=== PATIENT | male | born 1960 | race American Indian/Alaskan Native ===

== ENCOUNTER 2017-01-23 16:17 | Emergency (ER) | payer OTHER ==
[~2017-01-23] VITALS: Ht 172.7 cm; Wt 58.1 kg
[2017-01-24] MEDS ORDERED: DILANTIN100 MG PO (16:46)
[2017-01-24] MEDS ORDERED: PHENYTOIN SODI100 MG PO (16:54)
== END 2017-01-23 18:23 | disposition home or self-care (01) ==
LOC: ED 16:17
DX: F10.129 Alcohol abuse with intoxication, unspecified (principal); R56.9 Unspecified convulsions; Z87.891 Personal history of nicotine dependence; Z85.841 Personal history of malignant neoplasm of brain
CPT/HCPCS: 80048; 81001; 85025; 96360; 99283; G0480; J7030

== ENCOUNTER 2017-01-24 16:18 | Emergency (ER) | payer OTHER ==
[~2017-01-24] VITALS: Ht 172.7 cm; Wt 58.1 kg
[2017-01-24] MEDS ORDERED: DILANTIN100 MG PO (16:46)
[2017-01-24] MEDS ORDERED: PHENYTOIN SODI100 MG PO (16:54)
== END 2017-01-24 17:20 | disposition home or self-care (01) ==
LOC: ED 16:18
DX: Z76.0 Encounter for issue of repeat prescription (principal); Z87.891 Personal history of nicotine dependence; Z79.899 Other long term (current) drug therapy
CPT/HCPCS: 99281

== ENCOUNTER 2017-01-25 18:01 | Emergency (ER) | payer OTHER ==
[~2017-01-25] VITALS: Ht 172.7 cm; Wt 58.1 kg
[~2017-01-25 18:01] MED LIST: DILANTIN100 MG PO; PHENYTOIN SODI100 MG PO
== END 2017-01-25 18:36 | disposition home or self-care (01) ==
LOC: ED 18:01
DX: S00.531A Contusion of lip, initial encounter (principal); S00.81XA Abrasion of other part of head, initial encounter; Z87.891 Personal history of nicotine dependence; Z79.899 Other long term (current) drug therapy; W22.8XXA Striking against or struck by other objects, initial encounter
CPT/HCPCS: 99282

== ENCOUNTER → 2017-03-29 | Emergency (ER) | payer OTHER ==
[~2017-03-29] VITALS: Ht 172.7 cm; Wt 58.1 kg
[~2017-03-29] MED LIST changes: +ZOFRAN ODT4 MG PO
== END ==
LOC: ED 19:31
DX: F10.229 Alcohol dependence with intoxication, unspecified (principal); G40.909 Epilepsy, unspecified, not intractable, without status epilepticus; Z87.891 Personal history of nicotine dependence; Y90.8 Blood alcohol level of 240 mg/100 ml or more
CPT/HCPCS: 80053; 80185; 85025; 96365; 96366; 99283; G0480; J3411; J7030

== ENCOUNTER 2017-04-09 09:16 | Emergency (ER) | payer OTHER ==
[~2017-04-09] VITALS: Ht 172.7 cm; Wt 58.1 kg
[~2017-04-09 09:16] MED LIST changes: -ZOFRAN ODT4 MG PO
[2017-04-09] MEDS ORDERED: ZOFRAN ODT4 MG PO (11:09)
== END 2017-04-09 13:24 | disposition home or self-care (01) ==
LOC: ED 09:16
DX: F10.20 Alcohol dependence, uncomplicated (principal); Y90.8 Blood alcohol level of 240 mg/100 ml or more; G40.909 Epilepsy, unspecified, not intractable, without status epilepticus
CPT/HCPCS: 80048; 85025; 96374; 99283; G0480; J2405; J7030

== ENCOUNTER 2017-04-22 18:42 | Emergency (ER) | payer OTHER ==
[~2017-04-22] VITALS: Ht 172.7 cm; Wt 58.1 kg
[~2017-04-22 18:42] MED LIST changes: +ZOFRAN ODT4 MG PO
--- NOTE | 2017-04-24 14:25 | EKG ---
[facility] [address] [facility] [place] [address] Signed Poor data quality, interpretation may be adversely affected Normal sinus rhythm Junctional ST depression, probably normal Borderline ECG No previous ECGs available Confirmed by KARLY GONZALEZ MD ([id number]) on 04/24/2017 2:24:52 PM Electronically Signed By: KARLY GONZALEZ MD 04/24/17 1425 PATIENT NAME: IZZYLAMAR KIARA Electrocardiogram DATE OF : 64 PHYSICIAN: KARLY GONZALEZ MD REPORT #: [id number] REPORT IS CONFIDENTIAL AND NOT TO BE RELEASED WITHOUT AUTHORIZATION
== END 2017-04-22 21:45 | disposition home or self-care (01) ==
LOC: ED 18:42
DX: T68.XXXA Hypothermia, initial encounter (principal); F10.129 Alcohol abuse with intoxication, unspecified; G40.909 Epilepsy, unspecified, not intractable, without status epilepticus; Z59.0 Homelessness; Z79.899 Other long term (current) drug therapy; Y90.8 Blood alcohol level of 240 mg/100 ml or more
CPT/HCPCS: 80053; 84484; 85025; 93005; 93010; 99283; G0480

== ENCOUNTER 2017-06-23 15:59 | Emergency (ER) | payer OTHER ==
[~2017-06-23] VITALS: Ht 162.6 cm; Wt 58.1 kg
--- NOTE | 2017-06-25 14:05 | EKG ---
[facility] [address] [facility] [place], [place] [address] Signed Sinus tachycardia Otherwise normal ECG When compared with ECG of 22-APR-2017 19:05, No significant change was found Confirmed by KARLY GONZALEZ MD ([id number]) on 06/25/2017 2:04:53 PM Electronically Signed By: KARLY GONZALEZ MD 06/25/17 1405 PATIENT NAME: LAMAR MAGANA Electrocardiogram DATE OF : 64 PHYSICIAN: KARLY GONZALEZ MD REPORT #: [id number] REPORT IS CONFIDENTIAL AND NOT TO BE RELEASED WITHOUT AUTHORIZATION
[2017-07-16] MEDS ORDERED: AUGMENTIN 500-1 EACH PO (12:31)
== END 2017-06-23 18:29 | disposition home or self-care (01) ==
LOC: ED 15:59
DX: R07.89 Other chest pain (principal); G40.909 Epilepsy, unspecified, not intractable, without status epilepticus; Z87.891 Personal history of nicotine dependence; Z79.899 Other long term (current) drug therapy
CPT/HCPCS: 71045; 80053; 84484; 85025; 93005; 93010; 99284

== ENCOUNTER 2017-07-06 09:15 | Emergency (ER) | payer OTHER ==
[~2017-07-06] VITALS: Ht 162.6 cm; Wt 58.1 kg
--- NOTE | 2017-07-07 07:20 | EKG ---
[facility] [address] [facility] [place], [place] [address] Signed Sinus tachycardia Otherwise normal ECG When compared with ECG of 23-JUN-2017 16:02, No significant change was found Confirmed by ARNOLD WEST MD ([id number]) on 07/07/2017 7:19:58 AM Electronically Signed By: ARNOLD WEST MD 07/07/17 0720 PATIENT NAME: LAMAR MAGANA Electrocardiogram DATE OF : 64 PHYSICIAN: ARNOLD WEST MD REPORT #: [id number] REPORT IS CONFIDENTIAL AND NOT TO BE RELEASED WITHOUT AUTHORIZATION
[2017-07-16] MEDS ORDERED: AUGMENTIN 500-1 EACH PO (12:31)
== END 2017-07-06 09:56 | disposition home or self-care (01) ==
LOC: ED 09:15
DX: F10.20 Alcohol dependence, uncomplicated (principal); Z87.891 Personal history of nicotine dependence; Z79.899 Other long term (current) drug therapy
CPT/HCPCS: 93005; 93010; 99283

== ENCOUNTER 2017-07-07 18:19 | Emergency (ER) | payer OTHER ==
[~2017-07-07] VITALS: Ht 162.6 cm; Wt 58.1 kg
--- NOTE | 2017-07-08 07:38 | EKG ---
[facility] [address] [facility] [place], [place] [address] Signed Sinus tachycardia Otherwise normal ECG When compared with ECG of 06-JUL-2017 09:25, No significant change was found Confirmed by ARNOLD WEST MD ([id number]) on 07/08/2017 7:38:13 AM Electronically Signed By: ARNOLD WEST MD 07/08/17 0738 PATIENT NAME: LAMAR MAGANA Electrocardiogram DATE OF : 64 PHYSICIAN: ARNOLD WEST MD REPORT #: [id number] REPORT IS CONFIDENTIAL AND NOT TO BE RELEASED WITHOUT AUTHORIZATION
[2017-07-16] MEDS ORDERED: AUGMENTIN 500-1 EACH PO (12:31)
== END 2017-07-07 21:21 | disposition home or self-care (01) ==
LOC: ED 18:19
DX: F10.129 Alcohol abuse with intoxication, unspecified (principal); R07.9 Chest pain, unspecified; Y90.8 Blood alcohol level of 240 mg/100 ml or more; Z87.891 Personal history of nicotine dependence; Z79.899 Other long term (current) drug therapy
CPT/HCPCS: 71046; 80053; 83690; 85025; 93005; 93010; 96374; 96375; 99283; G0480; J2060; J3411; J7030

== ENCOUNTER 2017-07-10 15:25 | Emergency (ER) | payer OTHER ==
[~2017-07-10] VITALS: Ht 162.6 cm; Wt 58.1 kg
[2017-07-10] MEDS ORDERED: ZOFRAN ODT4 MG PO ×2 (19:03→19:05)
[2017-07-10] MEDS ORDERED: CHLORDIAZEPOXID25 MG PO ×2 (19:03→19:05)
[2017-07-10] MEDS ORDERED: CLONIDINE HCL0.1 MG PO (19:05)
[2017-07-16] MEDS ORDERED: AUGMENTIN 500-1 EACH PO (12:31)
== END 2017-07-10 19:42 | disposition home or self-care (01) ==
LOC: ED 15:25
DX: F10.239 Alcohol dependence with withdrawal, unspecified (principal); E86.0 Dehydration; F17.200 Nicotine dependence, unspecified, uncomplicated; Z79.899 Other long term (current) drug therapy
CPT/HCPCS: 80053; 81001; 83605; 83690; 85025; 96374; 96375; 99284; G0480; J2060; J2405; J7030; J7042

== ENCOUNTER 2017-07-15 19:33 | Inpatient (IN) | payer OTHER ==
[~2017-07-15] VITALS: Ht 162.6 cm; Wt 63.7 kg
[~2017-07-15 19:33] MED LIST changes: +CHLORDIAZEPOXID25 MG PO; +CLONIDINE HCL0.1 MG PO
--- NOTE | 2017-07-15 21:04 | NUR ---
PT APPARENTLY, AT TIME OF THIS RECORD, IS NOT INJURED SERIOUSLY AND WILL BE DC'D TO GO HOME. HE HAS NO FAMILY TO CONTACT EXCEPT HIS MOTHER IN [place]. PT HAS NO PHONE ON HIM AND BELIEVES IT MAY BE IN HIS APARTMENT. PERSON TO NOTIFY IS LISTED NOONE. SUPERVISOR REACTOR FUELING HAS MADE ARRANGEMENTS FOR HIM TO GET A CARE RIDE BACK TO HIS APARTMENT ONCE DC IS COMPLETE.
--- NOTE | 2017-07-16 02:16 | NUR ---
07/16/17 0216 DRUMMOND,BIANCA Yimi 0020: PATIENT ARRIVED TO CCU ROOM 128 FOR RECOVERY PERIOD. PATIENT WITH ET TUBE IN PLACE. RT VENTILATING PATIENT WITH AMBU BAG. ART LINE IN PLACE, LEFT WRIST. FARROWING WORKER AT BEDSIDE. 2 CCU RNs AT BEDSIDE ALONG WITH PHOTO SPECIALIST. 0030: PATIENT MOVED FROM STRETCHER TO BED. CCU RNs ASSISTING TO HOOK MONITORS UP TO PATIENT. RESTRAINTS PLACED ON PATIENT BY CCU RN. LEFT WRIST ART LINE ZERO'D. PATIENT PLACED ON VENT BY RT. PATIENT AROUSING/MOVING INTERMITTENTLY. FARROWING WORKER AT BEDSIDE TO ADMINISTER PROPOFOL. RAC IV IS A FIELD START IV. CURRENTLY SALINE LOCKED. SITE WNL. LEFT HAND IV IS ALSO A FIELD START. ALSO, CURRENTLY SALINE LOCKED. LR RUNNING IN RIGHT FOREARM IV SITE. RFA IV SITE WNL. LR RUNNING IN LEFT FOREARM IV. LFA IV SITE WNL. 0040: PROPOFOL DRIP SET UP BY CCU RN. RT REMAINS AT BEDSIDE. 0050: SHEA EMPTIED. RT REMAINS AT BEDSIDE. CCU RNs ALSO ASSISTING WITH CARE. 0115: REPORT GIVEN TO CCU RN. CARE RESUMED BY CCU RN.
--- NOTE | 2017-07-16 03:18 | NUR ---
PT ARRIVED TO ROOM 128 AT 0015 FOR PACU. CARE TAKEN OVER AT 0115. PT PLACED ON VENTILATOR PER RT. PT WITH DRIED BLOOD IN NOSE AND MOUTH. ET TUBE SECURED. ART LINE ZEROED AND CONNECTED. SHEA TEMP PROBE IN PLACED DRAINING YELLOW URINE. STARTED PROPOFOL GTT AT 0040, PREVIOUSLY BEING SEDATED BY NURSE ANESTHESIST WITH PROPOFOL BOLUS. PROPOFOL GTT STARTED AT 10MCG/KG/MIN. TITRATED TO 20MCG/KG/MIN AT 0045, TO 30MCG/KG/MIN AT 0100, AND UP TO 40MCG/KG/MIN AT 0130. PT UP TO 50MCG/KG/MIN AT 0155 FOR RASS +2. EACH TIME TITRATED PT AGITATED, PULLING UP ARMS, GRIMACING, BITING ET TUBE. CURRENTLY PROPOFOL AT 30MCG/KG/MIN. 1MG ATIVAN GIVEN FOR BREAKTHROUGH AGITATION AT 0255, AND 1MG DILAUDID GIVEN IV FOR PAIN. PT BEGAN VOMITING AT 0130. ADMINISTERED 8MG ZOFRAN IV AND PLACED OG TUBE USING UROJET. DARK RED/BLACK COLORED LIQUID IN TUBE, VERIFIED PLACEDMENT WITH OSCULTATION AND XRAY. PLACED TO LIWS. COLOR NOW MORE CLEAR BROWN. AT 0217 PT BP DECREASED TO 72/48, PROPOFOL DECREASED TO 40MCG/KG/MIN.
--- NOTE | 2017-07-16 05:30 | NUR ---
PT OPENS EYES, CALM. EXPLAINED TO PT THAT HE IS IN THE HOSPITAL. REPOSITIONED TO FLOAT HIPS ON PILLOWS. SCD'S ON. PT CALM. EYES BACK TO BEING CLOSED. RT IN TO ADJUST VENT AND PROVIDE ORAL CARE.
--- NOTE | 2017-07-16 06:15 | NUR ---
PT GIVEN 1MG ATIVAN IV AFTER ORAL CARE. SITTING UP, TRYING TO REACH ET TUBE. RESTING QUIETLY NOW. PLATLETS STARTED AT 0423, NOW COMPLETE AT 0555.
--- NOTE | 2017-07-16 06:52 | NUR ---
PT RESTING COMFORTABLY, EYES CLOSED. PROPOFOL AT 20MCG/KG/MIN. VENT SETTINGS TV 440, PEEP5, FIO2 30%, RATE16, PIP CURRENTLY 17
--- NOTE | 2017-07-16 07:30 | NUR ---
BEDSIDE REPORT RECIEVED.
--- NOTE | 2017-07-16 07:35 | NUR ---
AWAKE, HEAD OFF PILLOW, ATTEMPTING TO EXTABATE SELF. WRIST RESTRAINTS REINFORCED. PROPOFOL INCREASED TO 30MCG/KG/MIN. IVF INFUSING AT 100 ML/HR. ART LINE ZEROED. WAVE FORM GOOD. SHEA CATH PATENT WITH CLEAR YELLOW URINE NOTED. HAS GOOD SENSATION IN FEET. SUCTIONED FOR SCANT AMOUNT OF PINK SPUTUM.
--- NOTE | 2017-07-16 08:57 | NUR ---
RECIEVED NEW ORDERS FOR A PT EVALUATION AND TREATMENT. WENT TO CHECK ON PATIENT AND HE IS NOT APPROPRIATE AT THIS TIME FOR A FORMAL PT EVALUATION. PATIENT IS CURRENTLY INTUBATED AND NON RESPONSIVE. SPOKE WITH NSG ABOUT PATIENT'S RECENT CT SCAN AND ADVISED TO USE CAUTION WITH ROLLING AND REPOSITIONING. PATIENT MAY BENEFIT FROM AN ORTHO EVALUATION SECONDARY TO RECENT BURST FRACTURE IN THE L3 VERTEBRAE WELL SEVERE CENTRAL CANAL STENOSIS AT C6-C7 SECONDARY TO CHRONIC DISC BULGE AND MULTIPLE CHRONIC FRACTURES IN THE SPINE. WILL CHECK ON PATIENT TOMORROW FOR POSSIBLE EVALUATION IF APPROPRIATE.
--- NOTE | 2017-07-16 09:35 | NUR ---
DILAUDID 1 MG IV GIVEN FOR OVERALL COMFORT.
--- NOTE | 2017-07-16 09:45 | NUR ---
DR. GONZALEZ HERE TO SEE PATIENT. PLAN TO DC PROPOFOL, DO CPAP THEN EXTABATE.
--- NOTE | 2017-07-16 09:50 | NUR ---
PROPOFOL TO OFF. DR. TORREZ AWARE OF PLAN. NO FUTHER ORDERS.
--- NOTE | 2017-07-16 10:01 | NUR ---
TO CPAP, RT WORKING WITH PATIENT.
--- NOTE | 2017-07-16 10:47 | CONS ---
[facility] [address], [place] [address] Signed DATE OF CONSULTATION: 07/15/2017 REFERRING PHYSICIAN: Dr. Sidney Manzano CHIEF COMPLAINT: Trauma. HISTORY OF PRESENT ILLNESS: Lamar a 57-year-old gentleman, well known to our local emergency room. Unfortunately, he suffers with alcohol abuse. He is also known to have a tumor in his left frontal lobe of his brain. He has a history of seizures and he knows he has a very bad back. He often complains of chest and abdominal pain when he comes to emergency room. Earlier today, he and his girlfriend were trying to sneak up the fire escape of a second-story apartment and he said he thought he fell as far as 20 feet down to the ground. When I talked to him, he thought he landed on his face and he certainly has some blood around his mouth, however, he said, he did not lose consciousness and apparently he was able to walk around the front of the house and actually into the house in the front and have someone call so that he can come to the emergency room. In emergency room, he has been very cooperative. He vomited up some blood, but otherwise his distal neuro exams are intact, and although he is definitely intoxicated, he certainly answers appropriately and seems to be very cooperative. In the meantime, he has been off to the CT on back and I will review that down below. He did have a Moore catheter placed along with his peripheral IVs. He has had return of clear yellow urine and a little bit somnolent from the alcohol, but responds easily to voice and we have actually given a couple of liters of fluid as well because his blood pressure had run down a little. 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 PAST SURGICAL HISTORY: None. SOCIAL HISTORY: He likes to smoke and he drinks up to half a gallon of whiskey a day. Apparently, he has used methamphetamines, cocaine, and heroin in the past. He has a girlfriend. He goes to the [facility] mainly with Chen oRsa, but also Dr. Giselle Campbell. He said he was denied disability and he will now work for probably a year. FAMILY HISTORY: He said mom vomited and aspirated and when he was only age 4. Dad of alcohol abuse. Electronically Signed By: NEMO TORREZ MD 07/16/17 1047 PATIENT NAME: LAMAR MAGANA CONSULTATION DATE OF : 64 REPORT #: [id number] PHYSICIAN: NEMO TORREZ MD PCP: GISELLE CAMPBELL MD REPORT IS CONFIDENTIAL AND NOT TO BE RELEASED WITHOUT AUTHORIZATION [facility] [address] [place] [id number] Signed REVIEW OF SYSTEMS: He had 10 systems reviewed and he is very cooperative and he seemed to be straightforward in his answers. ALLERGIES: None. MEDICATIONS: 1. Phenytoin. 2. Clonidine. 3. Chlordiazepoxide. PHYSICAL EXAMINATION: VITAL SIGNS: Blood pressure 120/82, heart rate was 102, respiratory rate 22, and temperature is 97.3. He is 5 feet 4 inches, around 58 kg. GENERAL: Lamar is a 57-year-old gentleman, who came in initially with his C-collar on his board. He had mildly slurred speech, but he is cooperative. In the meantime, we cleared his neck radiographically and clinically and the C-collar is off and he is off his backboard. LUNGS: Generally clear to auscultation bilaterally. HEART: Little tachycardic. ABDOMEN: Generally soft and flat. He tends to complain about pain all over the abdomen. His distal neurovascular exams are intact. LABORATORY DATA: His white blood count is 5.2, hemoglobin 12, and platelets 141. BUN 6, creatinine 0.8, AST 41, ALT 34, alkaline phosphatase 138, total bilirubin 0.6, and albumin is 4.2. His lipase is 12. His urinalysis was negative. Creatine kinase is 198. His alcohol is 314. RADIOGRAPHIC STUDIES: A chest x-ray was unremarkable. The CT scan of the brain showed the left frontal lobe tumor, it is chronic. He has thickening to the maxillary sinuses consistent with sinusitis. He has a fairly large osteophyte at C5-C6 that pushes on the canal a bit, puts him at high risk if it would ever fracture and push on his spinal canal. CT scan of chest, abdomen, and pelvis shows the old rib fractures, some chronic compression fractures in thoracic spine as well as at L1, but he does have a L3 burst fracture with no retropulsion into the canal. ASSESSMENT/PLAN: Lamar is a 57-year-old gentleman, who presents as above mainly with an L3 burst fracture. Our emergency room physician did check for Orthopedic surgery, who recommended we call [facility] and we are in the process doing that. He probably Electronically Signed By: NEMO TORREZ MD 07/16/17 1047 PATIENT NAME: LAMAR MAGANA CONSULTATION DATE OF : 64 REPORT #: [id number] PHYSICIAN: NEMO TORREZ MD PCP: GISELLE CAMPBELL MD REPORT IS CONFIDENTIAL AND NOT TO BE RELEASED WITHOUT AUTHORIZATION [facility] [address] [place], [place] [address] Signed has some maxillary sinusitis and, of course, he did take a contusion to his mouth, but his teeth were intact, although there is some blood and I think in time, that will be fine. Of course, he has the alcohol abuse. At this point, we will await our followup from [facility]. He may be admitted and fitted for a brace. I have explained this to Lamar. He has expressed understanding and agrees to above plan. Nemo Torrez MD ALB/MODL /[id number] cc: MD Nemo Yi MD Copies: GISELLE CAMPBELL MD, ANDREW L MD ~ Electronically Signed By: NEMO TORREZ MD 07/16/17 1047 PATIENT NAME: LAMAR MAGANA CONSULTATION DATE OF : 64 REPORT #: [id number] PHYSICIAN: NEMO TORREZ MD PCP: GISELLE CAMPBELL MD REPORT IS CONFIDENTIAL AND NOT TO BE RELEASED WITHOUT AUTHORIZATION
--- NOTE | 2017-07-16 10:47 | OR ---
[facility] [address] [place], [place] [address] Signed DATE OF OPERATION: 07/15/2017 SURGEON: Nemo Torrez MD PREOPERATIVE DIAGNOSES: 1. Hematemesis. 2. Alcohol abuse. 3. Fall from approximately 20 feet with L3 burst fracture. POSTOPERATIVE DIAGNOSIS: Chronic gastritis. PROCEDURE PERFORMED: EGD without biopsy. FINDINGS: Fresh blood in stomach, but no source of bleeding found other than the laceration inside of lower lip. INDICATIONS: Lamar is a 57-year-old gentleman, who unfortunately drinks between one and two quarts of hard liquor a day. He was with his girlfriend earlier today and he was trying to get up and down a fire escape ladder and fell about 20 feet to the ground below. He thinks he landed directly on his face, however, he denies loss of consciousness. He ended up walking around to the front of the apartment complex where he was able to ring the door mcelroy and one of the other tenants was able to call the ambulance to bring him to our local emergency room. Here in the emergency room, I spent about 2 hours with him with the ER physician. I was here just to see arrive. Initially, his systolic blood pressures are in the 120s and his heart rates always been around 100 to 105. Although intoxicated, he certainly was cooperative and very willing to talk with us. His initial chest x-ray was fine and we see that his initial hemoglobin was 12. We sent him over to the CT scanner where he had some chronic issues including a tumor in his left frontal lobe of his brain. He has some chronic fractures in his spine. He has a large osteophyte at C5-C6 and also has what looks like sinusitis currently, but he had an L3 burst fracture without retropulsion. He had been stable during this whole time, so the ER physician called [facility]'s neurosurgeon, who asked that we do some plain films of the L3 fracture to see if it was compressed more than 50% to make sure there was no retropulsion and if there were not, then this could be treated symptomatically. In the meantime, his blood pressure dropped to about 80 and he felt nauseated and eventually vomited up to about a liter of blood per the ER nurse. He Electronically Signed By: NEMO TORREZ MD 07/16/17 1047 PATIENT NAME: LAMAR MAGANA OPERATIVE REPORT DATE OF : 64 REPORT #: [id number] PHYSICIAN: NEMO TORREZ MD PCP: GISELLE SALMERON MD REPORT IS CONFIDENTIAL AND NOT TO BE RELEASED WITHOUT AUTHORIZATION [facility] [address] [place], [place] [address] Signed received some additional fluids and some Zofran, and when they took him over to get his plain films, he simply was not able to stand and his blood pressure went down to as low as to 60s. He was brought back over to the [facility], but it had been ordered, and at that point, I had actually gone off home and I was called and I came straight back. We called our crew in. Lamar was able to talk to me. I explained to him we needed to check his stomach for any bleeding source and if there was a bleeding ulcer or other issue that might need surgery. He also agreed to surgery along with the upper endoscopy. He told me that anything that I need to do to keep him alive was fine. DESCRIPTION OF PROCEDURE: Lamar was taken into the endoscopy suite and placed under general endotracheal tube anesthesia. The adult gastroscope was then introduced and we could see where he cut his inside of his lower lip, but was not actively bleeding now. His teeth were all intact. There was nothing loose. He had a little edema in the posterior oropharynx, but not horrible. The adult gastroscope was then passed down the esophagus into the stomach and down out into duodenum. The duodenum and pyloric channel were carefully evaluated. No evidence of any ulceration or bleeding. He had a little bit of food at the bottom of stomach with some clotted blood, so I took some time to irrigate that and push it around and found that there was no ulcers in the antrum nor on the incisura body of the stomach. He has a classic cobblestoning associated with the alcohol abuse in his gastritis, but no active bleeding from the gastritis. The scope had been retroflexed. I could not really see an obvious hiatal hernia, but he had quite a bit of fluid and some blood clots up in the fundus, so it took me a few minutes to irrigate and suction that out completely. We passed the scope in and out of the GE junction several times. He does have a little bit of destruction to the Z-line, but I could not find any evidence of a Tomasa-Urbina tear or other source of bleeding at the GE junction. Eventually, I got all the blood sucked out of the fundus and it was fine as well. The distal esophagus, middle and upper esophagus were also fine. As we worked, there was no additional blood accumulating. We felt very strongly we could not find any active bleeding throughout the esophagus, stomach, or duodenum and there was probably just blood that he had swallowed. The scope was then withdrawn and we left Lamar intubated. I had spoke to my hospitalist because we suspect Lamar will be withdrawing from alcohol in due time, and then I also called Dr. Hernando Snyder at [facility]. We talked about the various issues for Lamar and at this point, we felt it would be appropriate to keep him here and intubated and watch him with serial exams and blood draws. In the meantime, we placed an arterial line per our nurse platform beater and we left him intubated. We took him over to our ICU in generally stable, but critical condition. He did receive 2 units of blood during the endoscopy and we have his systolic blood pressure back up into the 90s. Again, his heart rate has stayed around 100. Electronically Signed By: NEMO TORREZ MD 07/16/17 1047 PATIENT NAME: LAMAR MAGANA OPERATIVE REPORT DATE OF : 64 REPORT #: [id number] PHYSICIAN: NEMO TORREZ MD PCP: GISELLE SALMERON MD REPORT IS CONFIDENTIAL AND NOT TO BE RELEASED WITHOUT AUTHORIZATION [address] [address] Signed Nemo Torrez MD ALB/MODL /[id number] cc: MD Giselle Pearson MD Copies: SAMMY SHEN ANDREW L MD QUAEMPTS, REX MD ~ Electronically Signed By: NEMO TORREZ MD 07/16/17 1047 PATIENT NAME: LAMAR MAGANA OPERATIVE REPORT DATE OF : 64 REPORT #: [id number] PHYSICIAN: NEMO TORREZ MD PCP: GISELLE SALMERON MD REPORT IS CONFIDENTIAL AND NOT TO BE RELEASED WITHOUT AUTHORIZATION
--- NOTE | 2017-07-16 11:10 | NUR ---
HAS BEEN ON CPAP FOR 70 MIN. PATIENT IS AWAKE AND COOPERATIVE. IS WRITING NOTES. DR. TORREZ HERE AND TALKING WITH PATIENT. DR. GONZALEZ UPDATED ON PATIENT. DR. GONZALEZ WILL BE HERE TO SEE PATIENT.
--- NOTE | 2017-07-16 11:15 | NUR ---
ORDERS RECIEVED TO EXTABATE.
--- NOTE | 2017-07-16 11:19 | NUR ---
EXTABATED TO O2 AT 2 L PER NC. IS COOPERATIVE.
--- NOTE | 2017-07-16 11:25 | NUR ---
MG LEVEL DRAWN VIA ART LINE. ART LINE DC'D, PRESSURE APPLIED X 10 MIN.
--- NOTE | 2017-07-16 11:30 | NUR ---
MONSE PICKETT DC'D PER ORDERS.
--- NOTE | 2017-07-16 11:45 | NUR ---
TOOK SIPS OF WATER W/O PROBLEMS. LIBURIM 50 MG PO GIVEN.
--- NOTE | 2017-07-16 12:30 | NUR ---
TO XRAY VIA W/C ACCOMP BY [employer] AND RN.
--- NOTE | 2017-07-16 12:30 | NUR ---
UPON GETTING OUT OF BED TO GET W/C FOR CT, C/O MID SUBSTERNAL PAIN.
[2017-07-16] MEDS ORDERED: AUGMENTIN 500-1 EACH PO ×2 (12:31)
--- NOTE | 2017-07-16 12:50 | NUR ---
RETURNED TO CCU. TOLERATED XRAY WELL. TO CHAIR FOR CLEAR LIQUIDS. IS SHAKEY.
--- NOTE | 2017-07-16 13:00 | NUR ---
DISCHARGE ORDERS RECIEVED.
--- NOTE | 2017-07-16 13:27 | NUR ---
PT REMAINS UP IN THE CHAIR AND WATCHING TV. WORKING ON HIS CLEAR LIQUID TRAY FOR LUNCH.
--- NOTE | 2017-07-16 14:30 | NUR ---
ALL 4 IV SITES DC'D. CATH INTACT. MONITOR DC'D.
--- NOTE | 2017-07-16 14:50 | NUR ---
DR. TORREZ AWARE OF FX STERNUM NO FUTHER ORDERS RECIEVED. REMAINS OKAY FOR DISCHARGE.
--- NOTE | 2017-07-16 15:25 | NUR ---
LIBRIUM 50 MG PO GIVEN PER ORDERS.
--- NOTE | 2017-07-16 15:40 | NUR ---
discharged via w/c ACCOMP BY RN. WILL TAKE TAXI RIDE TO [facility] TO GET MEDS THEN TAXI TO HOME.
[2017-07-18] MEDS ORDERED: ULTRAM50 MG PO ×2 (16:47)
== END 2017-07-16 15:40 | disposition home or self-care (01) | DRG 208 ==
LOC: ED 19:33 → DSVR 19:34 → CCU 19:35
PROVIDERS: ADMIT Colon & Rectal Surgery
PROC: 0DB68ZX Excision of Stomach, Via Natural or Artificial Opening Endoscopic, Diagnostic (ICD-10-PCS; 2017-07-15)
PROC: HZ2ZZZZ Detoxification Services for Substance Abuse Treatment (ICD-10-PCS; principal; 2017-07-15 22:47)
PROC: 0BH17EZ Insertion of Endotracheal Airway into Trachea, Via Natural or Artificial Opening (ICD-10-PCS; principal; 2017-07-15 22:47)
PROC: 5A1935Z Respiratory Ventilation, Less than 24 Consecutive Hours (ICD-10-PCS; principal; 2017-07-15 22:47)
DX: J96.01 Acute respiratory failure with hypoxia (principal); S32.031A Stable burst fracture of third lumbar vertebra, initial encounter for closed fracture; F10.239 Alcohol dependence with withdrawal, unspecified; D62 Acute posthemorrhagic anemia; K29.50 Unspecified chronic gastritis without bleeding; S01.511A Laceration without foreign body of lip, initial encounter; D32.0 Benign neoplasm of cerebral meninges; W17.89XA Other fall from one level to another, initial encounter; D69.6 Thrombocytopenia, unspecified; E83.42 Hypomagnesemia; F17.210 Nicotine dependence, cigarettes, uncomplicated; J01.00 Acute maxillary sinusitis, unspecified
CPT/HCPCS: 31720; 36415; 36430; 36600; 51702; 70450; 70486; 71045; 71260; 72100; 72125; 74177; 80053; 81001; 82150; 82550; 82803; 83605; 83690; 83735; 84100; 85025; 85027; 85610; 85730; 86850; 86900; 86901; 86920; 94002; 94799; 96374; 99285; G0480; J0171; J0295; J0330; J1100; J1170; J2060; J2370; J2405; J2704; J3475; J7040; J7050; J7120; P9016; P9035; Q9967

== ENCOUNTER 2017-07-18 16:27 | Emergency (ER) | payer OTHER ==
[~2017-07-18] VITALS: Ht 162.6 cm; Wt 62.6 kg
[~2017-07-18 16:27] MED LIST changes: +AUGMENTIN 500-1 EACH PO
[2017-07-18] MEDS ORDERED: ULTRAM50 MG PO (16:47)
== END 2017-07-18 17:22 | disposition home or self-care (01) ==
LOC: ED 16:27
DX: S22.20XD Unspecified fracture of sternum, subsequent encounter for fracture with routine healing (principal); G40.909 Epilepsy, unspecified, not intractable, without status epilepticus; Z79.899 Other long term (current) drug therapy; X58.XXXD Exposure to other specified factors, subsequent encounter
CPT/HCPCS: 99283

== ENCOUNTER 2017-07-22 15:22 | Emergency (ER) | payer OTHER ==
[~2017-07-22] VITALS: Ht 162.6 cm; Wt 62.6 kg
[~2017-07-22 15:22] MED LIST changes: +ULTRAM50 MG PO
== END 2017-07-22 20:45 | disposition home or self-care (01) ==
LOC: ED 15:22
DX: F10.129 Alcohol abuse with intoxication, unspecified (principal); F17.200 Nicotine dependence, unspecified, uncomplicated
CPT/HCPCS: 99283

== ENCOUNTER 2017-07-23 15:52 | Emergency (ER) | payer OTHER ==
[~2017-07-23] VITALS: Ht 162.6 cm; Wt 62.8 kg
== END 2017-07-23 20:32 | disposition home or self-care (01) ==
LOC: ED 15:52
DX: F10.229 Alcohol dependence with intoxication, unspecified (principal); F17.200 Nicotine dependence, unspecified, uncomplicated; Z79.899 Other long term (current) drug therapy
CPT/HCPCS: 99282

== ENCOUNTER 2017-08-01 17:02 | Emergency (ER) | payer OTHER ==
[~2017-08-01] VITALS: Ht 162.6 cm; Wt 62.8 kg
== END 2017-08-01 21:25 | disposition home or self-care (01) ==
LOC: ED 17:02
DX: F10.20 Alcohol dependence, uncomplicated (principal); G40.909 Epilepsy, unspecified, not intractable, without status epilepticus; F17.200 Nicotine dependence, unspecified, uncomplicated; Y90.8 Blood alcohol level of 240 mg/100 ml or more; Z79.899 Other long term (current) drug therapy
CPT/HCPCS: 36415; 80053; 81001; 85025; 99283; G0480

== ENCOUNTER 2019-04-18 00:12 | Emergency (ER) | payer OTHER ==
[~2019-04-18] VITALS: Ht 162.6 cm; Wt 58.3 kg
--- OUTSIDE RECORDS SUMMARY | 2019-04-18 00:14 | XMS ---
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 Care History Medical/Surgical 07/24/2017 [facility] - PLEASE CONTACT [facility] IF PATIENT PRESENTS TO THE ED AGAIN. - BEST PERSON TO CONTACT FOR [facility] IS GEORGIE CHAPMAN WHO PROVIDED HER CELL# [phone]. - GEORGIE FROM [facility] IS WILLING TO MEET PATIENT IN THE ED DURING WORKING HOURS MONDAY THROUGH MONDAY. 06/27/2017 [facility] Care Recommendation: This patient has had 5 or more Emergency Department visits in the last 12 months. Patient requires education on the scope and purpose of the ED as an acute care provider not a Primary Care Provider and should not be utilized for chronic conditions. If patient returns to ED please contact [facility] Worker[facility]ee at [phone]. These are guidelines and the provider should exercise clinical judgment when providing care. Substance Use/Overdose 07/11/2017 [facility] PATIENT IS TRYING TO GET INTO [facility]. IF THIS PATIENT COMES TO THE ED - CALL [facility] TO SEE IF THEY HAVE A CURRENT OPENING. [facility] [phone]. [facility]12 MO.) [facility] T[facility] 4 NOTE: Visits indicate total known visits. ED/C VISIT TRACKING (12 MO.) 04/18/2019 00:12 [facility] [place] TYPE: Emergency COMPLAINT: - SHAKING 02/07/2019 21:23 [facility] RafaelPal Nemesio ID (ID) TYPE: Emergency COMPLAINT: - SEIZURE DIAGNOSES: 1. Epilepsy, unsp, not intractable, without status epilepticus 2. Alcohol abuse, uncomplicated 3. Nicotine dependence, cigarettes, uncomplicated 4. Homelessness 5. Other fdc (current) drug therapy 02/07/2019 00:47 [facility] Calvin Herr ID (ID) TYPE: Emergency COMPLAINT: - SEIZURE DIAGNOSES: 1. Alcohol abuse with intoxication, unspecified 2. Epilepsy, unsp, not intractable, without status epilepticus 3. Nicotine dependence, cigarettes, uncomplicated 4. Blood alcohol level of 240 mg/100 ml or more 5. Other terminal operations manager (current) drug therapy 6. Homelessness 04/30/2018 06:49 [facility] Calvin Herr ID (ID) TYPE: Emergency COMPLAINT: - FEELS SEIZURE COMING ON DIAGNOSES: 1. Encntr for obs for oth suspected diseases and cond ruled out 2. Alcohol abuse, uncomplicated 3. Other chronic pain 4. Epilepsy, unsp, not intractable, without status epilepticus 5. Dorsalgia, unspecified 6. Nicotine dependence, cigarettes, uncomplicated 7. Other fdc (current) drug therapy - Alcohol abuse, uncomplicated INPATIENT VISIT TRACKING (12 MO.) No inpatient visits to display in this time frame [email or web address]
== END 2019-04-18 01:38 | disposition home or self-care (01) ==
LOC: ED 00:12
DX: G40.909 Epilepsy, unspecified, not intractable, without status epilepticus (principal); F17.200 Nicotine dependence, unspecified, uncomplicated
CPT/HCPCS: 80053; 80185; 96361; 96374; 96375; 99284-25; J2060; J2405; J7030

== ENCOUNTER 2019-04-23 15:30 | Emergency (ER) | payer OTHER ==
[~2019-04-23] VITALS: Ht 162.6 cm; Wt 67.3 kg
--- OUTSIDE RECORDS SUMMARY | 2019-04-23 15:32 | XMS ---
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 Primary Care 05/01/2016-Current PHONE: [phone] Jolly has no Care Guidelines for this patient. Care History Medical/Surgical 04/18/2019 [facility] \T\middot;\T\nbsp; PATIENT- [place] ELIGIBLE \T\middot;\T\nbsp; PLEASE REFER PATIENT TO [facility] FOR NON EMERGENT MEDICAL NEEDS. \T\middot;\ T\nbsp; [facility] CAN SEE PATIENTS SAME DAY FOR APTS IF PATIENT CALLS FIRST THING IN THE MORNING. 07/24/2017 [facility] - PLEASE CONTACT A\T\D SERVICES IF PATIENT PRESENTS TO THE ED AGAIN. - BEST PERSON TO CONTACT FOR A\T\D SERVICES IS GEORGIE CHAPMAN WHO PROVIDED HER CELL# [phone]. - GEORGIE FROM A\T\D SERVICES IS WILLING TO MEET PATIENT IN THE ED DURING WORKING HOURS MONDAY THROUGH MONDAY. 06/27/2017 [facility] Care Recommendation: This patient has had 5 or more Emergency Department visits in the last 12 months. Patient requires education on the scope and purpose of the ED as an acute care provider not a Primary Care Provider and should not be utilized for chronic conditions. If patient returns to ED please contact Community Health WorkerVee at [phone]. These are guidelines and the provider should exercise clinical judgment when providing care. E.D. VISIT COUNT (12 MO[address] [facility] TOTAL 5 NOTE: Visits indicate total known visits. ED/UCC VISIT TRACKING (12 MO.) 04/23/2019 15:30 DOMO Zimmerman TYPE: Emergency COMPLAINT: - MEDICAL CLEARNACE FOR DETOX 04/18/2019 00:12 DOMO Richter [place] TYPE: Emergency COMPLAINT: - SHAKING DIAGNOSES: - Nicotine dependence, unspecified, uncomplicated - Unspecified convulsions - Epilepsy, unsp, not intractable, without status epilepticus 02/07/2019 21:23 [facility] TYPE: Emergency COMPLAINT: - SEIZURE DIAGNOSES: 1. Epilepsy, unsp, not intractable, without status epilepticus 2. Alcohol abuse, uncomplicated 3. Nicotine dependence, cigarettes, uncomplicated 4. Homelessness 5. Other half-way (current) drug therapy 02[facility]07/2019 [facility]: [facility] COMPLAINT: - SEIZURE DIAGNOSES: 1. Alcohol abuse with intoxication, unspecified 2. Epilepsy, unsp, not intractable, without status epilepticus 3. Nicotine dependence, cigarettes, uncomplicated 4. Blood alcohol level of 240 mg/100 ml or more 5. Other half-way (current) drug therapy 6. Homelessness 04/30/2018 06:49 [facility] TYPE: Emergency COMPLAINT: - FEELS SEIZURE COMING ON DIAGNOSES: 1. Encntr for obs for oth suspected diseases and cond ruled out 2. Alcohol abuse, uncomplicated 3. Other chronic pain 4. Epilepsy, unsp, not intractable, without status epilepticus 5. Dorsalgia, unspecified 6. Nicotine dependence, cigarettes, uncomplicated 7. Other termite exterminator (current) drug therapy - Alcohol abuse, uncomplicated INPATIENT VISIT TRACKING (12 MO.) No inpatient visits to display in this time frame [email or web address]
== END 2019-04-23 15:45 | disposition home or self-care (01) ==
LOC: ED 15:30
DX: F10.129 Alcohol abuse with intoxication, unspecified (principal)

== ENCOUNTER 2019-05-03 11:33 | Emergency (ER) | payer OTHER ==
[~2019-05-03] VITALS: Ht 162.6 cm; Wt 67.3 kg
--- OUTSIDE RECORDS SUMMARY | 2019-05-03 11:36 | XMS ---
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 - 3 Facilities in 90 Days - [facility] - 2 Visits in 30 Days CARE PROVIDERS [facility] 04/18/2019-Current PHONE: [phone] [facility] Care 01/18/2017-Current PHONE: [phone] [facility] Primary Care 05/01/2016-Current PHONE: [phone] Jolly has no Care Guidelines for this patient. Care History Medical/Surgical 04/18/2019 [facility] \T\middot;\T\nbsp; PATIENT- [place] ELIGIBLE \T\middot;\T\nbsp; PLEASE REFER PATIENT TO [facility] FOR NON EMERGENT MEDICAL NEEDS. \T\middot;\ T\nbsp; [facility] CAN SEE PATIENTS SAME DAY FOR APTS IF PATIENT CALLS FIRST THING IN THE MORNING. 07/24/2017 [facility] - PLEASE CONTACT A\T\D SERVICES IF PATIENT PRESENTS TO THE ED AGAIN. - BEST PERSON TO CONTACT FOR A\T\D SERVICES IS GEORGIE CHAPMAN WHO PROVIDED HER CELL# [phone]. - GEORGIE FROM A\T\D SERVICES IS WILLING TO MEET PATIENT IN THE ED DURING WORKING HOURS MONDAY THROUGH MONDAY. 06/27/2017 [facility] Care Recommendation: This patient has had 5 or more Emergency Department visits in the last 12 months. Patient requires education on the scope and purpose of the ED as an acute care provider not a Primary Care Provider and should not be utilized for chronic conditions. If patient returns to ED please contact Community Health WorkerVee at [phone]. These are guidelines and the provider should exercise clinical judgment when providing care. E.D. VISIT COUNT (12 MO.) 2 [facility] (ID) 1 [facility] 3 [facility]. TOTAL 6 NOTE: Visits indicate total known visits. ED/UCC VISIT TRACKING (12 MO.) 05/03/2019 11:34 DOMO Zimmerman TYPE: Emergency COMPLAINT: - DETOX 04/24/2019 13:06 [facility] Emergency DIAGNOSES: - Alcohol Intoxication - Alcohol use, unspecified with intoxication, uncomplicated - poss seizure - Alcohol dependence, uncomplicated 04/23/2019 15:30 DOMO Richter [place] TYPE: Emergency COMPLAINT: - MEDICAL CLEARNACE FOR DETOX- [facility] DIAGNOSES: - Alcohol abuse with intoxication, unspecified 04/18/2019 00:12 DOMO Zimmerman TYPE: Emergency COMPLAINT: - SHAKING DIAGNOSES: - Nicotine dependence, unspecified, uncomplicated - Unspecified convulsions - Epilepsy, unsp, not intractable, without status epilepticus 02/07/2019 21:23 [facility] [place] [facility]: Emergency COMPLAINT: - SEIZURE DIAGNOSES: 1. Epilepsy, unsp, not intractable, without status epilepticus 2. Alcohol abuse, uncomplicated 3. Nicotine dependence, cigarettes, uncomplicated 4. Homelessness 5. Other long term care phlebotomist (current) drug therapy 02/07/2019 00:47 [facility] [place] ([place] TYPE: Emergency COMPLAINT: - SEIZURE DIAGNOSES: 1. Alcohol abuse with intoxication, unspecified 2. Epilepsy, unsp, not intractable, without status epilepticus 3. Nicotine dependence, cigarettes, uncomplicated 4. Blood alcohol level of 240 mg/100 ml or more 5. Other longterm (current) drug therapy 6. Homelessness INPATIENT VISIT TRACKING (12 MO.) No inpatient visits to display in this time frame [email or web address]
== END 2019-05-03 12:30 | disposition home or self-care (01) ==
LOC: ED 11:33
DX: F10.229 Alcohol dependence with intoxication, unspecified (principal); F17.200 Nicotine dependence, unspecified, uncomplicated; Z79.899 Other long term (current) drug therapy
CPT/HCPCS: 99283

== ENCOUNTER 2019-05-13 12:23 | Emergency (ER) | payer OTHER ==
[~2019-05-13] VITALS: Ht 162.6 cm; Wt 55.5 kg
--- OUTSIDE RECORDS SUMMARY | 2019-05-13 12:26 | XMS ---
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 Care History Medical/Surgical 04/18/2019 [facility] \T\middot;\T\nbsp; PATIENT- [place] ELIGIBLE \T\middot;\T\nbsp; PLEASE REFER PATIENT TO [facility] FOR NON EMERGENT MEDICAL NEEDS. \T\middot;\ T\nbsp; [facility] CAN SEE PATIENTS SAME DAY FOR APTS IF PATIENT CALLS FIRST THING IN THE MORNING. 07/24/2017 [facility] - PLEASE CONTACT A\T\D SERVICES IF PATIENT PRESENTS TO THE ED AGAIN. - BEST PERSON TO CONTACT FOR A\T\D SERVICES IS GEORGIE CHAPMAN WHO PROVIDED HER CELL# [phone]. - GEORGIE FROM A\T\D SERVICES IS WILLING TO MEET PATIENT IN THE ED DURING WORKING HOURS MONDAY THROUGH MONDAY. 06/27/2017 [facility] Care Recommendation: This patient has had 5 or more Emergency Department visits in the last 12 months. Patient requires education on the scope and purpose of the ED as an acute care provider not a Primary Care Provider and should not be utilized for chronic conditions. If patient returns to ED please contact Community Health WorkerVee at [phone]. These are guidelines and the provider should exercise clinical judgment when providing care. [facility].D. VIS[facility] (12 MO.) [facility] 4 [facility]. TOTAL 7 NOTE: Visits indicate total known visits. ED/UCC VISIT TRACKING (12 MO.) 05/13/2019 12:23 DOMO Zimmerman TYPE: Emergency COMPLAINT: - GLF 05/03/2019 11:34 DOMO Zimmerman TYPE: Emergency COMPLAINT: - ALCOHOL INTOX DIAGNOSES: - Alcohol dependence with intoxication, unspecified - Nicotine dependence, unspecified, uncomplicated - Alcohol dependence, uncomplicated - Alcohol dependence with intoxication, unspecified - Other ferry terminal agent (current) drug therapy - Alcohol dependence, uncomplicated 04/24/2019 13:06 [facility] Jasmyne GOODE TYPE: Emergency DIAGNOSES: - Alcohol Intoxication - Alcohol use, unspecified with intoxication, uncomplicated - poss seizure - Alcohol dependence, uncomplicated 04/23/2019 15:30 DOMO Richter [place] TYPE: Emergency COMPLAINT: - MEDICAL CLEARNACE FOR DETOX- [facility] DIAGNOSES: - Alcohol abuse with intoxication, unspecified 04/18/2019 00:12 DOMO Richter [place] TYPE: Emergency COMPLAINT: - SHAKING DIAGNOSES: - Nicotine dependence, unspecified, uncomplicated - Unspecified convulsions - Epilepsy, unsp, not intractable, without status epilepticus 02/07/2019 21:23 [facility] [place] [facility]: Emergency COMPLAINT: - SEIZURE DIAGNOSES: 1. Epilepsy, unsp, not intractable, without status epilepticus 2. Alcohol abuse, uncomplicated 3. Nicotine dependence, cigarettes, uncomplicated 4. Homelessness 5. Other ferry terminal agent (current) drug therapy 02/07/2019 00:47 [facility] [place] ([place] TYPE: Emergency COMPLAINT: - SEIZURE DIAGNOSES: 1. Alcohol abuse with intoxication, unspecified 2. Epilepsy, unsp, not intractable, without status epilepticus 3. Nicotine dependence, cigarettes, uncomplicated 4. Blood alcohol level of 240 mg/100 ml or more 5. Other ferry terminal agent (current) drug therapy 6. Homelessness INPATIENT VISIT TRACKING (12 MO.) No inpatient visits to display in this time frame [id number]
== END 2019-05-13 15:37 | disposition home or self-care (01) ==
LOC: ED 12:23
DX: F10.20 Alcohol dependence, uncomplicated (principal); S09.90XA Unspecified injury of head, initial encounter; G40.909 Epilepsy, unspecified, not intractable, without status epilepticus; F17.200 Nicotine dependence, unspecified, uncomplicated; Z79.899 Other long term (current) drug therapy; W19.XXXA Unspecified fall, initial encounter
CPT/HCPCS: 70450; 72125; 99284-25

== ENCOUNTER 2019-05-17 20:59 | Emergency (ER) | payer OTHER ==
[~2019-05-17] VITALS: Ht 162.6 cm; Wt 55.3 kg
--- OUTSIDE RECORDS SUMMARY | 2019-05-17 21:02 | XMS ---
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 Care History Medical/Surgical 04/18/2019 [facility] \T\middot;\T\nbsp; PATIENT- [place]LLOW[place] ELIGIBLE \T\middot;\T\nbsp; PLEASE REFER PATIENT TO [facility] FOR NON EMERGENT MEDICAL NEEDS. \T\middot;\ T\nbsp; [facility] CAN SEE PATIENTS SAME DAY FOR APTS IF PATIENT CALLS FIRST THING IN THE MORNING. 07/24/2017 [facility] - PLEASE CONTACT A\T\D SERVICES IF PATIENT PRESENTS TO THE ED AGAIN. - BEST PERSON TO CONTACT FOR A\T\D SERVICES IS GEORGIE CHAPMAN WHO PROVIDED HER CELL# [phone]. - GEORGIE FROM A\T\D SERVICES IS WILLING TO MEET PATIENT IN THE ED DURING WORKING HOURS MONDAY THROUGH MONDAY. 06/27/2017 [facility] Care Recommendation: This patient has had 5 or more Emergency Department visits in the last 12 months. Patient requires education on the scope and purpose of the ED as an acute care provider not a Primary Care Provider and should not be utilized for chronic conditions. If patient returns to ED please contact Community Health WorkerVee at [phone]. These are guidelines and the provider should exercise clinical judgment when providing care. E.D. VISIT COUNT (12 MO.) 2 [facility] 5 [facility]. TOTAL 8 NOTE: Visits indicate total known visits. ED/UCC VISIT TRACKING (12 MO.) 05/17/2019 21:00 DOMO Richter [place] TYPE: Emergency COMPLAINT: - WITHDRAWALS 05/13/2019 12:23 DOMO [place]ter [place] TYPE: Emergency COMPLAINT: - GLF 05/03/2019 11:34 DOMO [place]ter [place] TYPE: Emergency COMPLAINT: - ALCOHOL INTOX DIAGNOSES: - Alcohol dependence with intoxication, unspecified - Nicotine dependence, unspecified, uncomplicated - Alcohol dependence, uncomplicated - Alcohol dependence with intoxication, unspecified - Other half-way (current) drug therapy - Alcohol dependence, uncomplicated 04/24/2019 13:06 [facility]: Emergency DIAGNOSES: - Alcohol Intoxication - Alcohol use, unspecified with intoxication, uncomplicated - poss seizure - Alcohol dependence, uncomplicated 04/23/2019 15:30 DOMO Zimmerman TYPE: Emergency COMPLAINT: - MEDICAL CLEARNACE FOR DETOX- [facility] DIAGNOSES: - Alcohol abuse with intoxication, unspecified 04/18/2019 00:12 DOMO Zimmerman TYPE: Emergency COMPLAINT: - SHAKING DIAGNOSES: - Nicotine dependence, unspecified, uncomplicated - Unspecified convulsions - Epilepsy, unsp, not intractable, without status epilepticus 02/07/2019 21:23 [facility]: Emergency COMPLAINT: - SEIZURE DIAGNOSES: 1. Epilepsy, unsp, not intractable, without status epilepticus 2. Alcohol abuse, uncomplicated 3. Nicotine dependence, cigarettes, uncomplicated 4. Homelessness 5. Other half-way (current) drug therapy 02/07/2019 00:47 [facility] [place] ([place] TYPE: Emergency COMPLAINT: - SEIZURE DIAGNOSES: 1. Alcohol abuse with intoxication, unspecified 2. Epilepsy, unsp, not intractable, without status epilepticus 3. Nicotine dependence, cigarettes, uncomplicated 4. Blood alcohol level of 240 mg/100 ml or more 5. Other half-way (current) drug therapy 6. Homelessness INPATIENT VISIT TRACKING (12 MO.) No inpatient visits to display in this time frame [email or web address]
== END 2019-05-18 01:06 | disposition home or self-care (01) ==
LOC: ED 20:59
DX: F10.239 Alcohol dependence with withdrawal, unspecified (principal); Y90.4 Blood alcohol level of 80-99 mg/100 ml; F17.200 Nicotine dependence, unspecified, uncomplicated
CPT/HCPCS: 96361; 96374; 96375; 99284-25; J2060; J2405; J7030

== ENCOUNTER 2019-05-24 19:29 | Emergency (ER) | payer OTHER ==
[~2019-05-24] VITALS: Ht 162.6 cm; Wt 55.5 kg
--- OUTSIDE RECORDS SUMMARY | 2019-05-24 19:32 | XMS ---
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 Care History Medical/Surgical 04/18/2019 [facility] \T\middot;\T\nbsp; PATIENT- YELLOW[place]WK ELIGIBLE \T\middot;\T\nbsp; PLEASE REFER PATIENT TO [facility] FOR NON EMERGENT MEDICAL NEEDS. \T\middot;\ T\nbsp; [facility] CAN SEE PATIENTS SAME DAY FOR APTS IF PATIENT CALLS FIRST THING IN THE MORNING. 07/24/2017 [facility] - PLEASE CONTACT A\T\D SERVICES IF PATIENT PRESENTS TO THE ED AGAIN. - BEST PERSON TO CONTACT FOR A\T\D SERVICES IS GEORGIE CHAPMAN WHO PROVIDED HER CELL# [phone]. - GEORGIE FROM A\T\D SERVICES IS WILLING TO MEET PATIENT IN THE ED DURING WORKING HOURS MONDAY THROUGH MONDAY. 06/27/2017 [facility] Care Recommendation: This patient has had 5 or more Emergency Department visits in the last 12 months. Patient requires education on the scope and purpose of the ED as an acute care provider not a Primary Care Provider and should not be utilized for chronic conditions. If patient returns to ED please contact Community Health WorkerVee at [phone]. These are guidelines and the provider should exercise clinical judgment when providing care. E.D. VISIT COUNT (12 MO.) 2 [facility] 1 [facility] 6 [facility]. TOTAL 9 NOTE: Visits indicate total known visits. ED/UCC VISIT TRACKING (12 MO.) 05/24/2019 19:29 DOMO Ricther [place] TYPE: Emergency COMPLAINT: - POSSIBLE INTOXICATION 05/17/2019 21:00 DOMO Richter [place] TYPE: Emergency COMPLAINT: - WITHDRAWALS DIAGNOSES: - Blood alcohol level of 80-99 mg/100 ml - Alcohol dependence with withdrawal, unspecified - Nicotine dependence, unspecified, uncomplicated - Alcohol abuse with intoxication, unspecified 05/13/2019 12:23 DOMO [place]ter [place] TYPE: Emergency COMPLAINT: - GLF DIAGNOSES: - Unspecified injury of head, initial encounter - Alcohol abuse, uncomplicated - Other custodial (current) drug therapy - Unspecified fall, initial encounter - Alcohol dependence, uncomplicated - Epilepsy, unsp, not intractable, without status epilepticus - Nicotine dependence, unspecified, uncomplicated 05/03/2019 11:34 DOMO [place]ter [place] TYPE: Emergency COMPLAINT: - ALCOHOL INTOX DIAGNOSES: - Alcohol dependence with intoxication, unspecified - Nicotine dependence, unspecified, uncomplicated - Alcohol dependence, uncomplicated - Alcohol dependence with intoxication, unspecified - Other custodial (current) drug therapy - Alcohol dependence, uncomplicated 04/24/2019 13:06 [facility] DIAGNOSES: - Alcohol Intoxication [...] without status epilepticus 02/07/2019 21:23 [facility] [place] [facility]: Emergency COMPLAINT: - SEIZURE DIAGNOSES: 1. Epilepsy, unsp, not intractable, without status epilepticus 2. Alcohol abuse, uncomplicated 3. Nicotine dependence, cigarettes, uncomplicated 4. Homelessness 5. 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 [place] ([place] TYPE: Emergency COMPLAINT: - SEIZURE DIAGNOSES: 1. Alcohol abuse with intoxication, unspecified 2. Epilepsy, unsp, not intractable, without status epilepticus 3. Nicotine dependence, cigarettes, uncomplicated 4. Blood alcohol level of 240 mg/100 ml or more 5. Other custodial (current) drug therapy 6. Homelessness INPATIENT VISIT TRACKING (12 MO.) No inpatient visits to display in this time frame [email or web address]
== END 2019-05-24 19:53 | disposition home or self-care (01) ==
LOC: ED 19:29
DX: F10.129 Alcohol abuse with intoxication, unspecified (principal); Z79.899 Other long term (current) drug therapy
CPT/HCPCS: 99284